=== PATIENT | female | born 1990 | race Caucasian/White ===

== ENCOUNTER → 2017-03-06 | Outpatient (CLI) | payer MEDICAID | LOC: LAB 11:35 | DX: N91.2 Amenorrhea, unspecified (principal) ==

== ENCOUNTER 2021-12-25 13:14 | Emergency (ER) | payer BC ==
[~2021-12-25] VITALS: Ht 170.2 cm; Wt 86.4 kg
[2021-12-25 13:58] LABS: BASO # 0.03 K/mm3 (0.02-0.10); EOS # 0.15 K/mm3 (0.04-0.40); EOS % 2.5 % (1.0-5.0); HEMATOCRIT 38.5 % (37.0-47.0); HEMOGLOBIN 12.5 g/dL (12.5-16.0); LYMPH# 1.64 K/mm3 (1.50-4.00); MEAN CELL VOLUME 87 fl (78-100); MEAN CORPUSCULAR HEMOGLOBIN 28 pg (27-31); MEAN CORPUSCULAR HGB CONC 33 g/dL (33-37); MEAN PLATELET VOLUME 10.2 fl (7.4-10.4); NEU # 3.73 K/mm3 (1.40-6.50); PLATELET COUNT 259 K/mm3 (130-400); RED BLOOD COUNT 4.42 M/mm3 (4.10-5.30)
[2021-12-25 14:03] LABS: ALBUMIN 4.4 g/dL (3.5-5.0)
[2021-12-25 14:04] LABS: POTASSIUM 4.2 mmol/L (3.5-5.1)
[2021-12-25 14:05] LABS: CALCIUM 9.4 mg/dL (8.3-10.5)
[2021-12-25 14:06] LABS: TOTAL PROTEIN 7.2 g/dL (6.4-8.3)
[2021-12-25 14:08] LABS: TOTAL BILIRUBIN 0.7 mg/dL (0.2-1.2)
[2021-12-25 15:11] LABS: URINE APPEARANCE CLEAR; URINE BILIRUBIN NEGATIVE (NEGATIVE); URINE BLOOD NEGATIVE (NEGATIVE); URINE COLOR YELLOW; URINE GLUCOSE NEGATIVE (NEGATIVE); URINE KETONE 2+ (NEGATIVE); URINE LEUKOCYTE ESTERASE NEGATIVE (NEGATIVE); URINE MUCUS PRESENT (NOT PRESENT); URINE NITRATE NEGATIVE (NEGATIVE); URINE PROTEIN(semi-quant) NEGATIVE (NEGATIVE); URINE UROBILINOGEN NORMAL (NORMAL)
[2021-12-25] MEDS ORDERED: FLONASE ALLERG9.9 ML NS (15:30)
[2021-12-25] MEDS ORDERED: GOOD NEIGHBOR M25 M1 PO (15:30)
[2021-12-25 15:51] VITALS: BP 111/71
== END 2021-12-25 15:51 | disposition home or self-care (01) ==
LOC: ED 13:14
PROVIDERS: Physician Assistant
DX: R42 Dizziness and giddiness (principal); R09.81 Nasal congestion; H69.90 Unspecified Eustachian tube disorder, unspecified ear

== ENCOUNTER → 2022-02-07 | Outpatient (CLI) | payer BC ==
[~2022-02-07] MED LIST: FLONASE ALLERG9.9 ML NS; GOOD NEIGHBOR M25 M1 PO
== END ==
LOC: AMSURD 18:03
DX: R00.0 Tachycardia, unspecified (principal)

== ENCOUNTER → 2022-02-08 | Outpatient (CLI) | payer BC | LOC: VAS 12:57 → RAD 13:00 | DX: R00.0 Tachycardia, unspecified (principal) ==